=== PATIENT | female | born 1995 | race Two or more races ===

== ENCOUNTER 2021-07-08 16:17 | Outpatient (CLI) | payer OTHER | END 2021-07-08 16:31 | disposition home or self-care (01) | LOC: LAB 16:17 | PROVIDERS: ATTEND Obstetrics & Gynecology Maternal & Fetal Medicine | DX: Z34.82 Encounter for supervision of other normal pregnancy, second trimester (principal) ==

== ENCOUNTER 2021-11-18 09:46 | Inpatient (IN) | payer OTHER ==
[~2021-11-18] VITALS: Ht 149.9 cm; Wt 2.7 kg
[2021-11-18] MEDS ORDERED: PRENATAL FORMU1 EAC1 PO (11:03)
== END 2021-11-21 13:11 | disposition home or self-care (01) | DRG 788 ==
LOC: LDR 09:46 → OB/GYN 11-19 02:15
PROVIDERS: ADMIT Obstetrics & Gynecology Maternal & Fetal Medicine; ATTEND Obstetrics & Gynecology Maternal & Fetal Medicine
PROC: 0UB90ZZ Excision of Uterus, Open Approach (ICD-10-PCS; 2021-11-18)
PROC: 4A1HXCZ Monitoring of Products of Conception, Cardiac Rate, External Approach (ICD-10-PCS; 2021-11-18)
PROC: 10D00Z1 Extraction of Products of Conception, Low, Open Approach (ICD-10-PCS; principal; 2021-11-18 18:30)
DX: O33.8 Maternal care for disproportion of other origin (principal); O34.13 Maternal care for benign tumor of corpus uteri, third trimester; D25.9 Leiomyoma of uterus, unspecified; Z3A.38 38 weeks gestation of pregnancy; Z37.0 Single live birth; Z20.822 Contact with and (suspected) exposure to COVID-19